=== PATIENT | female | born 1985 | race Hispanic/Latino ===

== ENCOUNTER → 2023-06-27 | Emergency (ER) | payer OTHER ==
[~2023-06-27] MED LIST: CEFTRIAXONE 1000 MG/VIAL ONE; HYDROCODONE/APAP 10/325 TAB ONE; KETOROLAC 30 MG/ML INJ ONE; MORPHINE 4 MG/ML SYR ONE; NA CHLORIDE 0.9% 1,000 ML ONE; NA CHLORIDE 0.9% 50 ML ONE; ONDANSETRON 4 MG/2 ML VIAL ONE; PROMETHAZINE 25 MG TABLET ONE; TAMSULOSIN 0.4 MG SR CAP ONE
--- OUTSIDE RECORDS SUMMARY | 2023-06-27 00:33 | XMS REPORT | Continuity of Care Document ---
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 Role Phone Unavailable Unavailable Unavailable Payers Payer Name Policy Type Policy Number Effective Date Expirati on Date Source [employer] P [id number] 2022 00:00:00 [employer] P [id number] Encounters Start Date/Time End Date/Time Encounter Type Admission Type Attending [facility] Facility Care Department Encounter ID Source 2022-09-18 11:37:[address] [facility] [id number] [employer] 2022-07-19 08:39:[address] [facility] [id number] [employer] 2022-06-11 12:09:[address] [facility] [id number] [employer] Results Test Description Test Time Test Comments Results Result Co mments Source
[2023-06-27 01:29] LABS: Absolute Eosinophils 0.1 K/uL (0-0.5); Absolute Lymphocytes (CBC) 2.4 K/uL (0.7-4.9); Absolute Monocytes 0.8 K/uL (0.1-1.3); Absolute Neutrophil 7.6 K/uL (1.8-8.0); Basophils % 0.4 % (0-1.3); Eosinophils % 1.2 % (0-4.4); Hematocrit 38.7 % (36.0-45.0); Lymphocytes % 22.2 % (15.3-44.8); MCH 28.4 pg (27.0-35.0); MCHC 33.6 g/dL (32.0-36.0); MCV 84.6 fL (80-100); MPV 7.7 fL (7.6-11.3); Monocytes % 7.5 % (3.3-12.3); Neutrophils % 68.7 % (41.7-73.7); Nucleated Red Blood Cells % 0.1 % (0-0); Platelets 368 thou/uL (152-406); RBC Red Blood Cell Count 4.58 M/uL (3.86-4.86); Red Cell Distribution Width 13.3 % (12.1-15.2)
[2023-06-27 01:31] LABS: Specific Gravity 1.026 (1.005-1.030); Sqamous Epithelial None Seen /HPF (None Seen); Urine Bacteria None Seen /HPF (<20); Urine Bilirubin NEGATIVE (Negative); Urine Blood 3+ (OVER) (Negative); Urine Clarity Extremely Turbid (Clear); Urine Color Brown (Yellow); Urine Culture Reflex Order NOT NEEDED; Urine Glucose NEGATIVE (Negative); Urine Ketones NEGATIVE (Negative); Urine Microscopic Reflex YN ORDER UMIC; Urine Mucus Slight /HPF (None Seen); Urine Nitrite NEGATIVE (Negative); Urine Protein 2+ (Negative); Urine RBC <5 /HPF (None Seen); Urine Urobilinogen Normal (Normal); Urine WBC <5 /HPF (<5); Urine Yeast (Budding) Trace /HPF (None Seen); Urine pH 5.5 (5.0-7.0)
[2023-06-27 01:34] LABS: Specific Gravity 1.026 (1.005-1.030)
[2023-06-27 01:42] LABS: Albumin 3.4 g/dL (3.4-5.0); Albumin/Globulin Ratio 0.9 (1.1-1.8); Anion Gap 9.9 mEq/L (5.0-15.0); Bilirubin Total 0.4 mg/dL (0.2-1.0); Potassium 3.9 mEq/L (3.5-5.1); Protein, Total 7.4 g/dL (6.4-8.2)
--- NOTE | 2023-06-27 04:34 | EDPHYS ---
Physician Documentation [facility] Name: Rain Landa Age: 38 yrs Sex: Female : 1985 Arrival Date: 06/27/2023 Time: 00:29 Bed 6 Private MD: None, None ED Physician Porfirio Ro HPI: 06/26 00:47 This 38 yrs old Female presents to ER via Unassigned with complaints of sp4 Abdominal Pain, Back Pain. 03:21 38-year-old female presents with 6 days of left flank pain, left abdominal pain, left sp4 back pain, also nausea vomiting and diarrhea.. 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 - Social history:: Smoking status: Reported history of juuling and/or vaping. - Family history:: not pertinent. ROS: 03:21 Constitutional: Negative for fever, chills, and weight loss, Abdomen/GI: Positive sp4 nausea vomiting and diarrhea, positive left flank pain, positive for left abdominal pain 03:21 All other systems are negative, Exam: 03:21 Constitutional: This is a well developed, well nourished patient who is awake, alert, sp4 and in no acute distress. Head/Face: Normocephalic, atraumatic. Eyes: Pupils equal round and reactive to light, extra-ocular motions intact. Lids and lashes normal. Conjunctiva and sclera are not injected. Cornea within normal limits. Periorbital areas with no swelling, redness, or edema. ENT: Nares patent. No nasal discharge, no septal abnormalities noted. Tympanic membranes are normal and external auditory canals are clear. Oropharynx with no redness, swelling, or masses, exudates, or evidence of obstruction, uvula midline. Mucous membranes moist. Neck: Trachea midline, no thyromegaly or masses palpated, and no cervical lymphadenopathy. Supple, full range of motion without nuchal rigidity, or vertebral point tenderness. Chest/axilla: Normal chest wall appearance and motion. Nontender with no deformity. No lesions are appreciated. Cardiovascular: Regular rate and rhythm with a normal S1 and S2. No gallops, murmurs, or rubs. Normal PMI, no JVD. No pulse deficits. Respiratory: Lungs have equal breath sounds bilaterally, clear to auscultation and percussion. No rales, rhonchi or wheezes noted. No increased work of breathing, no retractions or nasal flaring. Abdomen/GI: Soft, with normal bowel sounds. No distension or tympany. No guarding or rebound , positive for left lower abdominal tenderness Back: No spinal tenderness. No costovertebral tenderness. Skin: Warm, dry with normal turgor. Normal color with no rashes, no lesions, and no evidence of cellulitis. MS/ Extremity: Pulses equal, no cyanosis. Neurovascular intact. Full, normal range of motion. Neuro: Awake and alert, GCS 15, oriented to person, place, time, and situation. Cranial nerves II-XII grossly intact. Motor strength 5/5 in all extremities. Sensory grossly intact. Psych: Awake, alert, with orientation to person, place and time. Behavior, mood, and affect are within normal limits Vital Signs: 00:33 BP 136 / 85; Pulse 74; Resp 17 S; Temp 98.2(O); Pulse Ox 98% on R/A; Weight 86.18 kg; ha1 Height 5 ft. 3 in. ; 01:00 BP 138 / 90; Pulse 75; Resp 20; Temp 98.1; Pulse Ox 98% on R/A; as9 02:00 BP 129 / 71; Pulse 67; Resp 17 S; Pulse Ox 100% on R/A; ha1 03:00 BP 128 / 81; Pulse 71; Resp 17 S; Pulse Ox 100% on R/A; ha1 04:00 BP 127 / 79; Pulse 69; Resp 17 S; Pulse Ox 100% on R/A; ha1 00:33 Body Mass Index 33.66 (86.18 kg, 160.02 cm) ha1 Suzanna Coma Score: 03:21 Eye Response: spontaneous(4). Motor Response: obeys commands(6). Verbal Response: sp4 oriented(5). Total: 15. MDM: 00:50 Patient medically screened. sp4 03:20 ED course: EXAM: US Abdomen Limited, Gallbladder CLINICAL HISTORY: The patient is 38 sp4 years old and is Female; ABD PAIN TECHNIQUE: Real-time ultrasound of the right upper quadrant with image documentation. COMPARISON: No relevant prior studies available. FINDINGS: LIVER: The liver is increased in echogenicity. GALLBLADDER: The gallbladder is distended. No gallstones are seen. There is no gallbladder wall thickening or pericholecystic fluid. COMMON BILE DUCT: Unremarkable as visualized. No stones. No dilation. IMPRESSION: 1. Hepatic steatosis. 2. Unremarkable gallbladder ultrasound. 03:23 Differential diagnosis: arthritis, Cholelithiasis chronic back pain, Obesity sp4 Osteoarthritis Osteomalacia. Data reviewed: vital signs, nurses notes, old medical records, lab test result(s), radiologic studies, CT scan, ultrasound. 04:23 Consideration of Admission/Observation Escalation of care including sp4 admission/observation considered. ED course: EXAM: CTAbdomen and Pelvis With Intravenous Contrast CLINICAL HISTORY: The patient is 38 years old and is Female; ABD PAIN TECHNIQUE: Axial computed tomography images of the abdomen and pelvis with intravenous contrast. Sagittal and coronal reformatted images were created and reviewed. This CT exam was performed using one or more of the following dose reduction techniques: automated exposure control, adjustment of the mA and/or kV according to patient size, and/or use of iterative reconstruction technique. COMPARISON: No relevant prior studies available. FINDINGS: Lung bases: Unremarkable. No mass. No consolidation. ABDOMEN: Liver: Hepatomegaly. Gallbladder and bile ducts: Unremarkable. No calcified stones. No ductal dilation. Pancreas: Unremarkable. No mass. No ductal dilation. Spleen: Unremarkable. No splenomegaly. Adrenals: Unremarkable. No mass. Kidneys and ureters: 5 mm stone in the region of the left UVJ. Mild left hydroureteronephrosis and periureteral stranding. Stomach and bowel: Unremarkable. No obstruction. No mucosal thickening. PELVIS: Appendix: The appendix is normal. Bladder: Unremarkable. Reproductive: Unremarkable as visualized. ABDOMEN and PELVIS: Intraperitoneal space: Unremarkable. No free air. No significant fluid collection. Bones/joints: No acute fracture. No dislocation. Soft tissues: Unremarkable. Vasculature: Unremarkable. No abdominal aortic aneurysm. Lymph nodes: Unremarkable. No enlarged lymph nodes. IMPRESSION: 5 mm stone in the region of the left UVJ. Mild left hydroureteronephrosis and periureteral stranding. Electronically signed by: Savage Schmidt MD 06/27/2023 03:44 AM. 04:27 ED course: EXAM: US Abdomen Limited, Gallbladder CLINICAL HISTORY: The patient is 38 sp4 years old and is Female; ABD PAIN TECHNIQUE: Real-time ultrasound of the right upper quadrant with image documentation. COMPARISON: No relevant prior studies available. FINDINGS: LIVER: The liver is increased in echogenicity. GALLBLADDER: The gallbladder is distended. No gallstones are seen. There is no gallbladder wall thickening or pericholecystic fluid. COMMON BILE DUCT: Unremarkable as visualized. No stones. No dilation. IMPRESSION: 1. Hepatic steatosis. 2. Unremarkable gallbladder ultrasound. . 06/26 00:49 Order name: CBC with Diff; Complete Time: 03:04 sp4 06/26 00:49 Order name: CMP; Complete Time: 03:04 sp4 06/26 00:49 Order name: Lipase; Complete Time: 03:04 sp4 06/26 00:49 Order name: Test, Urine; Complete Time: 03:04 sp4 06/26 00:49 Order name: Urinalysis w/ reflexes; Complete Time: 03:04 sp4 06/26 01:06 Order name: CRP; Complete Time: 03:04 sp4 06/26 00:49 Order name: Abdomen Limited US sp4 06/26 01:06 Order name: CT Abd/Pelvis - IV Contrast Only sp4 06/26 00:49 Order name: IV Saline Lock; Complete Time: 01:11 sp4 06/26 00:49 Order name: Labs collected and sent; Complete Time: 01:11 Administered Medications: 01:11 Drug: NS 0.9% IV 1000 ml IV at 1 bolus Per protocol; 1000 mL bolus Route: IV; Rate: 1 as9 bolus; Site: right wrist; 05:00 Follow up: Response: No adverse reaction; IV Status: Completed infusion; IV Intake: ha1 1000ml 01:47 Drug: Rocephin - Rocephin (cefTRIAXone) IVPB 1 grams IVPB once over 30 mins; (mix in 50 as9 mL NS) Route: IVPB; Infused Over: 30 mins; Site: right wrist; 03:00 Follow up: Response: No adverse reaction ha1 03:30 Follow up: Response: No adverse reaction; IV Status: Completed infusion; IV Intake: [id number] 01:48 Drug: Ketorolac IVP 30 mg IVP once Route: IVP; Site: right wrist; as9 02:15 Follow up: Response: No adverse reaction; Marked relief of symptoms ha1 01:48 Drug: morphine IVP or IV 4 mg IVP once over 4 mins Route: IVP; Infused Over: 4 mins; as9 Site: right wrist; 02:15 Follow up: Response: No adverse reaction; Marked relief of symptoms; Pain is decreased; ha1 RASS: Alert and Calm (0) 01:48 Drug: Ondansetron IVP 4 mg IVP once; over 2 minutes Route: IVP; Site: right wrist; as9 02:30 Follow up: Response: No adverse reaction; Marked relief of symptoms ha1 01:57 Drug: NS 0.9% IV 1000 ml IV at 125 ml/hr continuous Route: IV; Rate: 125 ml/hr; Site: as9 right wrist; 05:03 Follow up: Response: No adverse reaction; IV Status: Completed infusion; IV Intake: ha1 700ml 05:04 Follow up: IV Status: Order to discontinue infusion; IV Intake: 400ml as9 03:58 Drug: Flomax PO 0.4 mg PO once Route: PO; as9 05:02 Follow up: Response: No adverse reaction as9 05:03 Follow up: Response: No adverse reaction; Marked relief of symptoms ha1 03:58 Drug: Elba PO 10 mg-325 mg 1 tabs PO once Route: PO; as9 05:02 Follow up: Response: No adverse reaction; Marked relief of symptoms; Pain is decreased; as9 RASS: Alert and Calm (0) 05:02 Follow up: Response: No adverse reaction; Marked relief of symptoms ha1 03:58 Drug: Promethazine PO 25 mg PO once Route: PO; as9 04:59 Follow up: Response: No adverse reaction; Marked relief of symptoms ha1 Disposition Summary: 06/27/23 04:33 Discharge Ordered Notes: Location: Home sp4 Problem: new sp4 Symptoms: have improved sp4 Condition: Stable sp4 Diagnosis - Left ureteral calculus, left flank pain, left renal colic sp4 Followup: sp4 - With: Michael Hung MD - When: 7 - 10 days - Reason: Recheck today's complaints Discharge Instructions: - Discharge Summary Sheet sp4 - Kidney Stones, [id number] sp4 Forms: - Patient Portal Instructions sp4 - Work release form as9 Prescriptions: - Flomax 0.4 mg Oral capsule - take 1 capsule ORAL route every evening; 30 capsule; Refills: 0, Product sp4 Selection Permitted - Ibuprofen 800 mg Oral Tablet - take 1 tablet ORAL route every 8 hours As needed take with food; 30 tablet; sp4 Refills: 0, Product Selection Permitted - Tramadol 50 mg Oral tablet - take 1 tablet ORAL route every 8 hours as needed; 20 tablet; Refills: 0, sp4 Product Selection Permitted - ondansetron 8 mg Oral Tablet,disintegrating - take 1 tablet ORAL route every 8 hours PRN nausea; 30 tablet; Refills: 0, sp4 Product Selection Permitted Signatures: Dispatcher [employer] Breana Alejo RN RN ha1 Porfirio Ro MD MD sp4 Jarrett Urban RN RN as9
--- NOTE | 2023-06-27 04:34 | ER ---
Nurse's Notes [facility] Name: Rain Landa Age: 38 yrs Sex: Female : 1985 Arrival Date: 06/27/2023 Time: 00:29 Bed 6 Private MD: None, None Diagnosis: Left ureteral calculus, left flank pain, left renal colic Presentation: 06/26 00:33 Chief complaint: Patient states: I have been having abdominal pain, diarrhea, and back ha1 pain since Saturday and it is not getting better. 00:33 Coronavirus screen: Vaccine status: Patient reports receiving the 2nd dose of the covid ha1 vaccine. Ebola Screen: No symptoms or risks identified at this time. Initial Sepsis Screen: Does the patient meet any 2 criteria? No. Patient's initial sepsis screen is negative. Does the patient have a suspected source of infection? No. Patient's initial sepsis screen is negative. Risk Assessment: Do you want to hurt yourself or someone else? Patient reports no desire to harm self or others. Onset of symptoms was June 27, 2023. 00:33 Method Of Arrival: Ambulatory ha1 00:33 Acuity: BRYAN 3 ha1 Triage Assessment: 00:33 General: Appears uncomfortable, Behavior is calm, cooperative. Pain: Complains of pain ha1 in abdomen Pain radiates to back Pain currently is 9 out of 10 on a pain scale. Quality of pain is described as throbbing. Neuro: Level of Consciousness is awake, alert, obeys commands, Oriented to person, place, time, situation. Cardiovascular: Capillary refill < 3 seconds Patient's skin is warm and dry. Respiratory: Airway is patent Respiratory effort is even, unlabored, Respiratory pattern is regular, symmetrical. GI: Abdomen is round non-distended, Bowel sounds present X 4 quads. Abd is soft and non tender Reports lower abdominal pain, upper abdominal pain, diarrhea, nausea. : No signs and/or symptoms were reported regarding the genitourinary system. Derm: Skin is moist, Skin is normal. Musculoskeletal: Circulation, motion, and sensation intact. Range of motion: intact in all extremities. 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 - Social history:: Smoking status: Reported history of juuling and/or vaping. - Family history:: not pertinent. Screenin:[address] [facility] ED Fall Risk Assessment (Adult) History of falling in the last 3 months, ha1 including since admission No falls in past 3 months (0 pts) Confusion or Disorientation No (0 pts) Intoxicated or Sedated No (0 pts) Impaired Gait No (0 pts) Mobility Assist Device Used No (0 pt) Altered Elimination No (0 pt) Score/Fall Risk Level 0 - 2 = Low Risk Oriented to surroundings, Maintained a safe environment, Educated pt \T\ family on fall prevention, incl call for assistance when getting out of bed, Hourly rounding (assess needs \T\ fall precautionary measures) done. Abuse screen: Denies threats or abuse. Denies injuries from another. Nutritional screening: No deficits noted. Tuberculosis screening: No symptoms or risk factors identified. Assessment: 01:00 Reassessment: patient states abdominal pain and back pain. as9 01:00 General: Appears in no apparent distress. Behavior is calm, cooperative, appropriate as9 for age. Pain: Complains of pain in abdomen Pain currently is 8 out of 10 on a pain scale. Neuro: Level of Consciousness is awake, alert, obeys commands, Oriented to person, place, time, situation, Appropriate for age. Cardiovascular: Capillary refill < 3 seconds Patient's skin is warm and dry. Respiratory: Airway is patent Respiratory effort is even, unlabored, Respiratory pattern is regular, symmetrical. GI: Abdomen is non-distended. : Urine is tea colored urine. EENT: No signs and/or symptoms were reported regarding the EENT system. Derm: Skin is intact, Skin is pink, warm \T\ dry. Musculoskeletal: Circulation, motion, and sensation intact. Range of motion: intact in all extremities. Vital Signs: 00:33 BP 136 / 85; Pulse 74; Resp 17 S; Temp 98.2(O); Pulse Ox 98% on R/A; Weight 86.18 kg; ha1 Height 5 ft. 3 in. ; 01:00 BP 138 / 90; Pulse 75; Resp 20; Temp 98.1; Pulse Ox 98% on R/A; as9 02:00 BP 129 / 71; Pulse 67; Resp 17 S; Pulse Ox 100% on R/A; ha1 03:00 BP 128 / 81; Pulse 71; Resp 17 S; Pulse Ox 100% on R/A; ha1 04:00 BP 127 / 79; Pulse 69; Resp 17 S; Pulse Ox 100% on R/A; ha1 00:33 Body Mass Index 33.66 (86.18 kg, 160.02 cm) ha1 Suzanna Coma Score: 03:21 Eye Response: spontaneous(4). Motor Response: obeys commands(6). Verbal Response: sp4 oriented(5). Total: 15. ED Course: 00:31 Patient arrived in ED. mr 00:31 None, None is Private Physician. mr 00:33 Patient has correct armband on for positive identification. Placed in gown. Bed in low ha1 position. Call light in reach. Side rails up X 1. Adult w/ patient. 00:47 Porfirio Ro MD is Attending Physician. sp4 00:51 Triage completed. ha1 01:11 CBC with Diff Sent. as9 01:11 CMP Sent. as9 01:11 Lipase Sent. as9 01:11 Test, Urine Sent. as9 01:11 Urinalysis w/ reflexes Sent. as9 01:16 Arm band placed on right wrist. as9 01:34 Abdomen Limited US In Process Unspecified. EDMS 01:39 Inserted saline lock: 20 gauge in right wrist, using aseptic technique. as9 02:53 CT Abd/Pelvis - IV Contrast Only In Process Unspecified. EDMS 04:32 Michael Hung MD is Referral Physician. sp4 04:55 No provider procedures requiring assistance completed. IV discontinued, intact, ha1 bleeding controlled, No redness/swelling at site. Pressure dressing applied. 04:56 Provided Education on: medication administration . ha1 Administered Medications: 01:11 Drug: NS 0.9% IV 1000 ml IV at 1 bolus Per protocol; 1000 mL bolus Route: IV; Rate: 1 as9 bolus; Site: right wrist; 05:00 Follow up: Response: No adverse reaction; IV Status: Completed infusion; IV Intake: ha1 1000ml 01:47 Drug: Rocephin - Rocephin (cefTRIAXone) IVPB 1 grams IVPB once over 30 mins; (mix in 50 as9 mL NS) Route: IVPB; Infused Over: 30 mins; Site: right wrist; 03:00 Follow up: Response: No adverse reaction ha1 03:30 Follow up: Response: No adverse reaction; IV Status: Completed infusion; IV Intake: [id number] 01:48 Drug: Ketorolac IVP 30 mg IVP once Route: IVP; Site: right wrist; as9 02:15 Follow up: Response: No adverse reaction; Marked relief of symptoms ha1 01:48 Drug: morphine IVP or IV 4 mg IVP once over 4 mins Route: IVP; Infused Over: 4 mins; as9 Site: right wrist; 02:15 Follow up: Response: No adverse reaction; Marked relief of symptoms; Pain is decreased; ha1 RASS: Alert and Calm (0) 01:48 Drug: Ondansetron IVP 4 mg IVP once; over 2 minutes Route: IVP; Site: right wrist; as9 02:30 Follow up: Response: No adverse reaction; Marked relief of symptoms ha1 01:57 Drug: NS 0.9% IV 1000 ml IV at 125 ml/hr continuous Route: IV; Rate: 125 ml/hr; Site: as9 right wrist; 05:03 Follow up: Response: No adverse reaction; IV Status: Completed infusion; IV Intake: ha1 700ml 05:04 Follow up: IV Status: Order to discontinue infusion; IV Intake: 400ml as9 03:58 Drug: Flomax PO 0.4 mg PO once Route: PO; as9 05:02 Follow up: Response: No adverse reaction as9 05:03 Follow up: Response: No adverse reaction; Marked relief of symptoms ha1 03:58 Drug: Avon PO 10 mg-325 mg 1 tabs PO once Route: PO; as9 05:02 Follow up: Response: No adverse reaction; Marked relief of symptoms; Pain is decreased; as9 RASS: Alert and Calm (0) 05:02 Follow up: Response: No adverse reaction; Marked relief of symptoms ha1 03:58 Drug: Promethazine PO 25 mg PO once Route: PO; as9 04:59 Follow up: Response: No adverse reaction; Marked relief of symptoms ha1 Medication: 01:19 VIS not applicable for this client. as9 Intake: 03:30 IV: 50ml; Total: 50ml. as9 05:00 IV: 1000ml; Total: 1050ml. ha1 05:03 IV: 700ml; Total: 1750ml. ha1 05:04 IV: 400ml; Total: 2150ml. as9 Outcome: 04:33 Discharge ordered by . sp4 04:56 Discharged to home ambulatory, with family, ha1 04:56 Condition: stable 04:56 Discharge instructions given to patient, family, Instructed on discharge instructions, follow up and referral plans. medication usage, Demonstrated understanding of instructions, follow-up care, medications, Prescriptions given X 3, 05:05 Patient left the ED. ha1 Signatures: Dispatcher [employer] EDCT ShawKrysten, Reg Reg mr Breana Chan RN RN ha1 Porfirio Ro MD MD sp4 Jarrett Urban RN RN as9 Corrections: (The following items were deleted from the chart) 01:48 01:47 Rocephin - Rocephin (cefTRIAXone) IVPB 1 grams IVPB in left wrist over 30 mins [id number] 01:50 01:49 Inserted saline lock: 20 gauge in right wrist, using aseptic technique. as9 as9
[2023-06-27 05:17] VITALS: BP 138/90; TEMP 98.1; O2SAT 98
--- NOTE | 2023-06-27 11:26 | RAD REPORT ---
EXAM DESCRIPTION: CT - Abdomen Pelvis W Contrast - 06/27/2023 6:25 am CLINICAL HISTORY: The patient is 38 years old and is Female; ABD PAIN TECHNIQUE: Axial computed tomography images of the abdomen and pelvis with intravenous contrast. S agittal and coronal reformatted images were created and reviewed. This CT exam was performed using one or more of the following dose reduction techniques: automated exposure control, adjustment of t he mA and/or kV according to patient size, and/or use of iterative reconstruction technique. COMPARISON: No relevant prior studies available. FINDINGS: Lung bases: Unremarkable. No mass. No consolidation. ABDOMEN: Liver: Hepatomegaly. Gallbladder and bile ducts: Unremarkable. No calcified stones. No ductal dilation. Pancreas: Unremarkable. No mass. No ductal dilation. Spleen: Unremarkable. No splenomegaly. Adrenals: Unremarkable. No mass. Kidneys and ureters: 5 mm stone in the region of the left UVJ. Mild left hydroureteronephrosis an d periureteral stranding. Stomach and bowel: Unremarkable. No obstruction. No mucosal thickening. PELVIS: Appendix: The appendix is normal. Bladder: Unremarkable. Reproductive: Unremarkable as visualized. ABDOMEN and PELVIS: Intraperitoneal space: Unremarkable. No free air. No significant fluid collection. Bones/joints: No acute fracture. No dislocation. Soft tissues: Unremarkable. Vasculature: Unremarkable. No abdominal aortic aneurysm. Lymph nodes: Unremarkable. No enlarged lymph nodes. IMPRESSION: 5 mm stone in the region of the left UVJ. Mild left hydroureteronephrosis and periureter al stranding. Electronically signed by: Savage Schmidt MD 06/27/2023 03:44 AM CDT Due to temporary technical issues with the PACS/Fluency reporting system, reports are being signed by the in house radiologists without review as a courtesy to insure prompt reporting. The interpreting radiologist is fully responsible for the content of the report.
--- NOTE | 2023-06-27 11:28 | RAD REPORT ---
EXAM DESCRIPTION: US - Abdomen Exam Limited - 06/27/2023 1:32 am CLINICAL HISTORY: The patient is 38 years old and is Female; ABD PAIN TECHNIQUE: Real-time ultrasound of the right upper quadrant with image documentation. COMPARISON: No relevant prior studies available. FINDINGS: LIVER: The liver is increased in echogenicity. GALLBLADDER: The gallbladder is distended. No gallstones are seen. There is no gallbladder wall t hickening or pericholecystic fluid. COMMON BILE DUCT: Unremarkable as visualized. No stones. No dilation. IMPRESSION: 1. Hepatic steatosis. 2. Unremarkable gallbladder ultrasound. Electronically signed by: Kathy Meraz MD 06/27/2023 01:58 AM CDT Due to temporary technical issues with the PACS/Fluency reporting system, reports are being signed by the in house radiologists without review as a courtesy to insure prompt reporting. The interpreting radiologist is fully responsible for the content of the report.
== END ==
LOC: ER 00:29
DX: N20.1 Calculus of ureter (principal); N23 Unspecified renal colic
CPT/HCPCS: 96365; 96361; 85025; 81001; 36415; 81025; 83690; 80053; 86140; 74177; 76705; 96375; 99284; 96366; Q9967; Q0169; J2405; J7030 ×2; J0696